=== PATIENT | female | born 1980 | race Caucasian/White ===

== ENCOUNTER 2017-06-09 23:36 | Emergency (ER) | payer BC ==
[2017-06-09] MEDS ORDERED: Ibuprofen 400 MG Tab PO ONE (23:37)
[2017-06-09] MEDS ORDERED: Acetaminophen 500 MG Tab PO ONE (23:49)
[2017-06-09] MEDS ORDERED: Ondansetron 4 MG Tab.DIS PO ONE (23:50)
[2017-06-10] MEDS ORDERED: Sodium Chloride 0.9% 1,000 ML ONE (00:09)
[2017-06-10] MEDS ORDERED: Ibuprofen 600 MG Tab PO ONE (00:15)
[2017-06-10] MEDS: Sodium Chloride 0.9% 5 ML Syringe FLUSH PRN ×2 (00:15→01:40)
--- NOTE | 2017-06-10 00:15 | EDM.PDOC ---
ED HPI GENERAL MEDICAL PROBLEM - General Chief Complaint: General Stated Complaint: chills, n/v Time Seen by Provider: 06/10/17 00:10 Source of Information: Reports: Patient History Limitations: Reports: No Limitations - History of Present Illness INITIAL COMMENTS - FREE TEXT/NARRATIVE: 36-year-old female presents to emergency room with abrupt onset of fever, chills , nausea and vomiting and headache that began approximately 9:00 this evening. She did take some Tylenol. She did not have significant relief of symptoms or chills. She denies a chest pain or difficulty breathing. She denies shortness of breath. She has a mild cough nonproductive. She denies abdominal pain or diarrhea. Onset: Today Onset Date: 06/09/17 Onset Time: 21:00 Duration: Hour(s):, Constant Location: Reports: Generalized Quality: Reports: Ache Severity: Severe Improves with: Reports: Medication Worsens with: Reports: None Associated Symptoms: Reports: Cough, Fever/Chills, Headaches, Nausea/Vomiting. 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 - Related Data Allergies Allergy/AdvReac Type Severity Reaction Status Date / Time No Known Drug Allergies Allergy Other Verified 05/27/16 18:47 tramadol Allergy Seizure Verified 06/09/17 23:37 Home Meds: Home Meds FLUoxetine HCl [Fluoxetine HCl] 40 mg PO BID 04/03/15 [History] LORazepam [LORazepam] 1 mg PO ASDIRECTED PRN 06/09/17 [History] Levothyroxine [Levothyroxine] 190 mcg PO DAILY 06/09/17 [History] Past Medical History HEENT History: Reports: Hard of Hearing Respiratory History: Reports: None Gastrointestinal History: Reports: None Genitourinary History: Reports: None 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: , 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 Other OB/BYN History: G-3 P-2 1 spontaneous Musculoskeletal History: Reports: Fracture, Other (See Below) Other Musculoskeletal History: history of fractured leg and collar bone Neurological History: Reports: Seizure Psychiatric History: Reports: Anxiety, Panic Attack Endocrine/Metabolic History: Reports: Hypothyroidism Hematologic History: Reports: None Immunologic History: Reports: None Oncologic (Cancer) History: Reports: None Dermatologic History: Reports: None - Infectious Disease History Infectious Disease History: Reports: Chicken Pox, Influenza - Past Surgical History HEENT Surgical History: Reports: LASIK, Myringotomy w Tube(s), Tonsillectomy Female Surgical History: Reports: Section Musculoskeletal Surgical History: Reports: Carpal Tunnel Social & Family History - Tobacco Use Smoking Status *Q: Current Every Day Smoker Years of Tobacco use: 15 Packs/Tins Daily: 1 Used Tobacco, but Quit: No Second Hand Smoke Exposure: No - Caffeine Use Caffeine Use: Reports: Coffee, Soda - Alcohol Use Days Per Week of Alcohol Use: 1 Number of Drinks Per Day: 1 Total Drinks Per Week: 1 - Recreational Drug Use Recreational Drug Use: No - Living Situation & Occupation Living situation: Reports: ED ROS GENERAL - Review of Systems Review Of Systems: See Below Constitutional: Reports: Fever, Chills HEENT: Denies: Ear Pain, Rhinitis, Throat Pain, Throat Swelling, Vertigo Respiratory: Reports: Cough. Denies: Shortness of Breath Cardiovascular: Reports: No Symptoms Endocrine: Reports: Other (thyroid) GI/Abdominal: Reports: Nausea, Vomiting. Denies: Abdominal Pain, Diarrhea : Reports: No Symptoms Musculoskeletal: Reports: Other (boday aches) Skin: Denies: Rash Neurological: Reports: Headache Psychiatric: Reports: No Symptoms Hematologic/Lymphatic: Reports: No Symptoms ED EXAM, GENERAL - Physical Exam Exam: See Below Exam Limited By: No Limitations General Appearance: Alert, WD/WN, Mild Distress Eye Exam: Bilateral Eye: EOMI Ears: Normal External Exam, Other (Left TM scarring) Nose: Normal Inspection Throat/Mouth: Normal Inspection, Normal Oropharynx, No Airway Compromise Head: Atraumatic, Normocephalic Neck: Normal Inspection, Supple. No: Lymphadenopathy (L), Lymphadenopathy (R) Respiratory/Chest: No Respiratory Distress, Lungs Clear, Normal Breath Sounds Cardiovascular: Normal Peripheral Pulses, Tachycardia GI/Abdominal: Soft Extremities: Normal Inspection, Normal Range of Motion Neurological: Alert, Oriented, Normal Cognition Psychiatric: Normal Affect, Normal Mood Skin Exam: Warm Lymphatic: No Adenopathy Course - Vital Signs Last Recorded V/S: Last Vital Signs Temp 100.8 F H 06/10/17 01:00 Pulse 116 H 06/10/17 01:00 Resp 18 06/10/17 01:00 BP 117/53 L 06/10/17 01:00 Pulse Ox 96 06/10/17 00:02 - Orders/Labs/Meds Orders: Active Orders 24 hr Category Date Time Status FLUoxetine HCl [Fluoxetine HCl] Med 06/10/17 09:00 Active 40 mg PO BID LORazepam [Ativan] Med 06/10/17 00:18 Active 1 mg PO ASDIRECTED PRN Levothyroxine [Levothyroxine] Med 06/10/17 09:00 Active 190 mcg PO DAILY Sodium Chloride 0.9% [Syrex Flush] Med 06/09/17 23:50 Active 5 ml FLUSH Q8HR PRN Saline Lock Insert [OM.PC] Routine Oth 06/09/17 23:50 Ordered Medication Orders Lorazepam (Ativan) 1 mg PO ASDIRECTED PRN PRN Reason: per flighing Non-Formulary Medication (Fluoxetine Hcl [Fluoxetine Hcl]) 40 mg PO BID CALEB Non-Formulary Medication (Levothyroxine [Levothyroxine]) 190 mcg PO DAILY CALEB Sodium Chloride (Syrex Flush) 5 ml FLUSH Q8HR PRN PRN Reason: Keep Vein Open Labs: Laboratory Tests 06/09/17 06/09/17 Range/Units 00:20 00:20 WBC 4.4 L (5.0-10.0) 10^3/uL RBC 4.50 (3.80-5.50) 10^6/uL Hgb 13.6 (12.0-16.0) g/dL Hct 40.8 (37.0-47.0) % MCV 90.5 (82.0-92.0) fL MCH 30.2 (27.0-31.0) pg MCHC 33.3 (32.0-36.0) g/dL RDW 14.8 H (11.5-14.5) % Plt Count 195 (150-300) 10^3/uL MPV 9.0 (7.4-10.4) fL Sodium 135 L (136-145) mmol/L Potassium 3.2 L (3.3-5.3) mmol/L Chloride 98 (98-115) mmol/L Carbon Dioxide 21.8 (21.0-32.0) mmol/L BUN 16 (6-25) mg/dL Creatinine 0.92 (0.51-1.17) mg/dL Est Cr Clr Drug Dosing 89.20 mL/min Estimated GFR (MDRD) > 60 mL/min Glucose 97 (70-110) mg/dL Calcium 8.6 L (8.7-10.3) mg/dL Meds: Medications Generic Name Dose Route Start Last Admin Trade Name Freq PRN Reason Stop Dose Admin Lorazepam 1 mg 06/10/17 00:18 Ativan PO ASDIRECTED PRN per flighing Non-Formulary Medication 40 mg 06/10/17 09:00 Fluoxetine Hcl [Fluoxetine Hcl] PO BID CALEB Non-Formulary Medication 190 mcg 06/10/17 09:00 Levothyroxine [Levothyroxine] PO DAILY CALEB Sodium Chloride 5 ml 06/09/17 23:50 Syrex Flush FLUSH Q8HR PRN Keep Vein Open Discontinued Medications Generic Name Dose Route Start Last Admin Trade Name Freq PRN Reason Stop Dose Admin Acetaminophen 1,000 mg 06/09/17 23:49 06/10/17 00:03 Tylenol Extra Strength PO 06/09/17 23:50 1,000 mg ONETIME ONE Administration Sodium Chloride Confirm 06/10/17 00:09 06/10/17 00:55 Normal Saline Administered 06/10/17 00:10 Not Given Dose 1,000 mls @ as directed .ROUTE .STK-MED ONE Sodium Chloride 1,000 mls @ 1,000 mls/hr 06/10/17 00:17 06/10/17 00:20 Normal Saline IV 06/10/17 01:16 1,000 mls/hr .BOLUS ONE Administration Ibuprofen 800 mg 06/10/17 00:15 06/10/17 00:51 Motrin PO 06/10/17 00:16 Not Given ONETIME ONE Ibuprofen Confirm 06/10/17 00:24 06/10/17 00:28 Motrin Administered 06/10/17 00:25 800 mg Dose Administration 800 mg .ROUTE .STK-MED ONE Ketorolac Tromethamine 30 mg 06/10/17 01:32 Toradol .ROUTE 06/10/17 01:33 .STK-MED ONE Ketorolac Tromethamine Confirm 06/10/17 01:32 06/10/17 01:34 Toradol Administered 06/10/17 01:33 30 mg Dose Administration 30 mg .ROUTE .STK-MED ONE Ondansetron HCl 4 mg 06/09/17 23:50 06/09/17 23:55 Zofran Odt PO 06/09/17 23:51 4 mg ONETIME ONE Administration Ondansetron HCl Confirm 06/10/17 01:42 Zofran Odt Administered 06/10/17 01:43 Dose 12 mg .ROUTE .STK-MED ONE Oseltamivir Phosphate 75 mg 06/10/17 00:42 06/10/17 00:51 Tamiflu PO 06/10/17 00:43 75 mg ONETIME ONE Administration - Re-Assessments/Exams Free Text/Narrative Re-Assessment/Exam: 06/10/17 01:35 Patient feels better after 1 L of fluids. Fever has gone down alternating thousand milligrams of Tylenol and 800 mg of ibuprofen. Her main complaint is her headache is persisting. She was given Toradol 30 mg IV Departure - Departure Time of Disposition: 02:00 Disposition: Home, Self-Care 01 Condition: Good Clinical Impression: Influenza Headache Qualifiers: Headache type: unspecified Headache chronicity pattern: acute headache Intractability: not intractable Qualified Code(s): R51 - Headache - Discharge Information Instructions: Influenza, Adult, [id number] Referrals: Molly Meadows PA-C [Primary Care Provider] - Forms: ED Department Discharge Additional Instructions: 1. Rest 2. Continue with oral hydration 3. Alternate between Tylenol and ibuprofen for fevers and aches 4. Zofran ODT for nausea as needed 5. Return to the ER or clinic if symptoms persist without improvement with the above. - My Orders Last 24 Hours: My Active Orders 06/09/17 23:50 Sodium Chloride 0.9% [Syrex Flush] 5 ml FLUSH Q8HR PRN Saline Lock Insert [OM.PC] Routine 06/10/17 00:18 LORazepam [Ativan] 1 mg PO ASDIRECTED PRN 06/10/17 09:00 FLUoxetine HCl [Fluoxetine HCl] 40 mg PO BID Levothyroxine [Levothyroxine] 190 mcg PO DAILY - Assessment/Plan Last 24 Hours: My Active Orders 06/09/17 23:50 Sodium Chloride 0.9% [Syrex Flush] 5 ml FLUSH Q8HR PRN Saline Lock Insert [OM.PC] Routine 06/10/17 00:18 LORazepam [Ativan] 1 mg PO ASDIRECTED PRN 06/10/17 09:00 FLUoxetine HCl [Fluoxetine HCl] 40 mg PO BID Levothyroxine [Levothyroxine] 190 mcg PO DAILY Assessment:: 1. Influenza 2. Headache 3. Fever 4. Nausea Plan: 1. Rest 2. Continue with oral hydration 3. Alternate between Tylenol and ibuprofen for fevers and aches 4. Zofran ODT for nausea as needed 5. Return to the ER or clinic if symptoms persist without improvement with the above.
[2017-06-10] MEDS ORDERED: Sodium Chloride 0.9% 1,000 ML IV ONE (00:17)
[2017-06-10] MEDS ORDERED: LORazepam 0.5 MG Tab PO PRN (00:18)
[2017-06-10] MEDS ORDERED: Ibuprofen 400 MG Tab ONE (00:24)
[2017-06-10] MEDS ORDERED: Oseltamivir 75 MG Cap PO ONE (00:42)
[2017-06-10 00:51] LABS: CHLORIDE,CL 98 mmol/L (98-115); SODIUM,NA 135 mmol/L (136-145)
[2017-06-10] MEDS ORDERED: Ketorolac 30 MG/ML SDV IVPUSH ONE (01:30)
[2017-06-10] MEDS ORDERED: Ketorolac 30 MG/ML SDV ONE ×2 (01:32)
[2017-06-10] MEDS ORDERED: Ondansetron 4 MG Tab.DIS ONE (01:42)
[2017-06-10] MEDS ORDERED: Ondansetron 4 MG Tab.DIS PO ONE (01:45)
[2017-06-10 02:27] VITALS: BP 105/54
[2017-06-10] MEDS ORDERED: LEVOTHYROXINE PO SCH (09:00)
[2017-06-10] MEDS ORDERED: Non-Formulary Medication 1 Each (Fluoxetine Hcl [Fluoxetine Hcl] 40 MG) PO SCH (09:00)
== END 2017-06-10 01:55 | disposition home or self-care (01) ==
LOC: KA.ED 23:36
DX: J11.1 Influenza due to unidentified influenza virus with other respiratory manifestations (principal); F17.210 Nicotine dependence, cigarettes, uncomplicated; Z88.6 Allergy status to analgesic agent; Z79.899 Other long term (current) drug therapy
CPT/HCPCS: 80048; 85027; 87804; 96361; 96374; 99284; A9270; J1885; J7030

== ENCOUNTER 2021-12-20 07:59 | Day surgery (SDC) | payer BC ==
[2021-12-20] MEDS ORDERED: Propofol 200 MG/20 ML SDV IV ONE (08:00)
[2021-12-20] MEDS ORDERED: Sodium Chloride 0.9% 10 ML Syringe FLUSH PRN (08:00)
[2021-12-20] MEDS ORDERED: Lactated Ringers 1,000 ML IV SCH (08:00)
[2021-12-20] MEDS ORDERED: Propofol 200 MG/20 ML SDV ONE ×2 (09:06→09:29)
[2021-12-20] MEDS ORDERED: Midazolam 1 MG/ML 2 ML SDV ONE (09:06)
[2021-12-20 10:34] VITALS: BP 136/74; PULSE 70
== END 2021-12-20 11:24 | disposition home or self-care (01) ==
LOC: KA.SDS 07:59
PROVIDERS: ATTEND Surgery
DX: Z12.11 Encounter for screening for malignant neoplasm of colon (principal); K63.5 Polyp of colon; E03.9 Hypothyroidism, unspecified; F41.9 Anxiety disorder, unspecified; H91.91 Unspecified hearing loss, right ear; Z80.0 Family history of malignant neoplasm of digestive organs; Z98.890 Other specified postprocedural states; Z88.8 Allergy status to other drugs, medicaments and biological substances; Z79.899 Other long term (current) drug therapy; Z79.890 Hormone replacement therapy
CPT/HCPCS: 00812; J2250; J2704; J7120

== ENCOUNTER 2024-12-03 01:51 | Emergency (ER) | payer BC ==
[2024-12-03 02:48] LABS: BASOPHILS ABSOLUTE AUTO 0.02 10^3/uL (0.00-0.10); BASOPHILS PERCENT AUTO 0.2 % (0.0-1.0); EOSINOPHILS ABSOLUTE AUTO 0.08 10^3/uL (0.10-0.30); EOSINOPHILS PERCENT AUTO 0.6 % (1.0-3.0); IMMATURE GRAN ABSOLUTE AUTO 0.04 10^3/uL (0.00-0.04); IMMATURE GRAN PERCENT AUTO 0.3 % (0.0-0.4); LYMPHOCYTES ABSOLUTE AUTO 0.98 10^3/uL (1.00-4.00); LYMPHOCYTES PERCENT AUTO 7.6 % (20.0-40.0); MEAN PLATELET VOLUME 11.1 fL (7.4-10.4); MONOCYTES ABSOLUTE AUTO 0.55 10^3/uL (0.10-0.80); MONOCYTES PERCENT AUTO 4.3 % (2.0-8.0); NEUTROPHILS ABSOLUTE AUTO 11.17 10^3/uL (2.50-7.00); NEUTROPHILS PERCENT AUTO 87.0 % (50.0-70.0); PLATELET COUNT,PLT 192 10^3/uL (150-400); RED BLOOD CELL COUNT 5.21 10^6/uL (3.80-5.50); RED CELL DISTRIBUTION WIDTH 12.7 % (11.5-14.5); WHITE BLOOD CELL COUNT,WBC 12.84 10^3/uL (5.00-10.00)
[2024-12-03 03:14] LABS: AMPHETAMINES SCREEN, URINE NEGATIVE (NEGATIVE); COCAINE METABOLITES,URINE NEGATIVE (NEGATIVE); METHADONE SCREEN, URINE NEGATIVE (NEGATIVE); METHAMPHETAMINES SCREEN, URINE NEGATIVE (NEGATIVE); OXYCODONE SCREEN,URINE NEGATIVE (NEGATIVE); PCP SCREEN,URINE NEGATIVE (NEGATIVE); TCA SCREEN,URINE NEGATIVE (NEGATIVE); THC SCREEN,URINE 50 NG/ML NEGATIVE (NEGATIVE)
[2024-12-03 03:17] LABS: ALANINE AMINOTRANSFERASE,ALT 30 U/L (14-63); ASPARTATE AMNIOTRANSFERASE,AST 24 U/L (15-37); BILIRUBIN TOTAL 0.5 mg/dL (0.2-1.0); BLOOD UREA NITROGEN,BUN 7 mg/dL (7-18); CARBON DIOXIDE,CO2 23.5 mmol/L (21.0-32.0); CHLORIDE,CL 100 mmol/L (98-107); CREATININE 0.74 mg/dL (0.51-1.17); EST CRCL DRUG DOSING (CG) 98.88 mL/min; GLUCOSE RANDOM 198 mg/dL (70-140); POTASSIUM,K 3.3 mmol/L (3.5-5.1); PROTEIN TOTAL,TP 7.5 g/dL (6.4-8.2); SODIUM,NA 138 mmol/L (136-145)
[2024-12-03 03:18] LABS: ESTIMATED GFR 103 mL/min (>=60); ETHANOL BLOOD MEDICAL < 3 mg/dL (<3)
[2024-12-03 03:23] LABS: APPEARANCE,URINE CLEAR (CLEAR); EPITHELIAL CELLS,URINE FEW /LPF; GLUCOSE,URINE NEGATIVE (NEGATIVE); OCCULT BLOOD,URINE NEGATIVE (NEGATIVE)
[2024-12-03] MEDS: Labetalol 100 MG/20 ML MDV IVPUSH ONE ×2 (03:48→04:59)
[2024-12-03] MEDS: LORazepam 2 MG/ML SDV IVPUSH ONE (04:08)
[2024-12-03 07:07] VITALS: BP 156/93; PULSE 98
== END 2024-12-03 06:53 ==
LOC: KA.ED 01:51
DX: T45.0X2A Poisoning by antiallergic and antiemetic drugs, intentional self-harm, initial encounter (principal); I10 Essential (primary) hypertension; R00.0 Tachycardia, unspecified; R06.82 Tachypnea, not elsewhere classified; E03.9 Hypothyroidism, unspecified; Z88.5 Allergy status to narcotic agent; Z79.890 Hormone replacement therapy; Z79.899 Other long term (current) drug therapy
CPT/HCPCS: 36415; 70450; 80053; 80143; 80179; 80305-QW; 80307; 81001; 82947; 83605; 84443; 85025; 96361; 96374; 96375; 96376; 99285-25; J1920; J2060; J7030; Q3014